=== PATIENT | male | born 1955 | race Caucasian/White ===

== ENCOUNTER → 2016-06-12 | Outpatient (CLI) | payer OTHER ==
--- NOTE | 2016-06-12 09:56 | US ---
Ultrasound of the Abdomen Complete History: Rib trauma Abdominal pain. Evaluate for liver contusion Findings: Gallbladder: Mobile stones versus sludge is noted in the gallbladder neck. Common bile duct is 4.3 mm in diameter which is normal. Gallbladder wall is 1.7 mm Liver: Homogeneous increased echogenicity and measures 19.2 cm in length. No definite focal lesions. Renal: Right kidney measures 4.8 x 5.2 x 9.7 cm with 1.5 cm cortex Pancreas: Homogeneous without peripancreatic fluid. Aorta: Visualized upper abdominal aorta demonstrates no aneurysm. It tapers normally from 22 to 20 mm IVC: Grossly patent. Impression: 1. Hepatomegaly with increased parenchymal echogenicity suggests diffuse fatty infiltration of the l iver. 2. Cholelithiasis
== END ==
LOC: CIMAGING 07:46
PROVIDERS: ATTEND Family Medicine
DX: R16.0 Hepatomegaly, not elsewhere classified (principal); K80.20 Calculus of gallbladder without cholecystitis without obstruction
CPT/HCPCS: 76700-PO

== ENCOUNTER 2018-02-21 06:06 | Inpatient (IN) | payer OTHER ==
[~2018-02-21 06:06] MED LIST: ROPIVACAINE 0.2% 80 MG, EPINEPHrine 0.2 MG, KETOROLAC TROMETHAMINE 30 MG in SYRINGE 0 ML IU ONE; TRANEXAMIC ACID 3,000 MG in NS (SYRINGE) 50 ML IRR ONE
--- NOTE | 2018-02-21 06:12 | PDHPUP ---
History & Physical Update H&P update statement: This history and physical update is based on an assessment of the patient which was completed after admission or registration (within 24 hours), but prior to the surgery/procedure. H&P update: H&P reviewed & patient examined, no change in patient's condition since H&P completed
[2018-02-21] MEDS ORDERED: ceFAZolin 2 GM/DEXTROSE 100 ML IV ONE (06:32)
[2018-02-21] MEDS ORDERED: FAMOTIDINE 20 MG TAB PO ONE (06:32)
[2018-02-21] MEDS ORDERED: ACETAMINOPHEN 325 MG TAB PO ONE (06:32)
[2018-02-21] MEDS ORDERED: DEXAMETHASONE 4 MG/ML VIAL IVP ONE (06:32)
[2018-02-21] MEDS ORDERED: LR 1,000 ML IV ONE (06:33)
[2018-02-21] MEDS ORDERED: TRANEXAMIC ACID 3,000 MG/50 ML BAG IRR ONE (06:39)
[2018-02-21] MEDS ORDERED: MIDAZOLAM 2 MG/2 ML VIAL IVP ONE (07:36)
--- NOTE | 2018-02-21 07:36 | PDANEPAE ---
ANE Past Medical History - Cardiovascular History Hx Hypertension: Yes Hx Arrhythmias: No Hx Chest Pain: No Hx Coronary Artery / Peripheral Vascular Disease: No Hx CHF / Valvular Disease: No Hx Palpitations: No - Pulmonary History Hx COPD: No Hx Asthma/Reactive Airway Disease: No Hx Recent Upper Respiratory Infection: No Hx Oxygen in Use at Home: No Hx Sleep Apnea: Yes Sleep Apnea Screening Result - Last Documented: Positive Pulmonary History Comment: MILD TIFFANY USES MOUTH GUARD. PREV FX RIBS 2016 - Neurologic History Hx Cerebrovascular Accident: No Hx Seizures: No Hx Dementia: No - Endocrine History Hx Diabetes: No Endocrine History Comment: BENIGN THYROID NODULES - Renal History Hx Renal Disorders: No - Liver History Hx Hepatic Disorders: No - Neurological & Psychiatric Hx Hx Neurological and Psychiatric Disorders: Yes Neurological / Psychiatric History Comment: ANXIETY - Cancer History Hx Cancer: No - Congenital Disorder History Hx Congenital Disorders: No - GI History Hx Gastrointestinal Disorders: Yes Gastrointestinal History Comment: INTERMITTENT REFLUX MIGHT USE TUMS. HX OF COLON POLYPS - Other Health History Other Health History: OSTEOARTHRITIS - Chronic Pain History Chronic Pain: Yes (LT HIP) - Surgical History Prior Surgeries: TONSILLECTOMY ANE Review of Systems Review of Systems: - Exercise capacity METS (RN): 4 METS ANE Patient History - Allergies Allergies/Adverse Reactions: No Known Allergies Allergy (Verified 01/23/18 10:45) - Home Medications Home Medications: Aspirin [Aspirin 81mg (*)] 81 mg PO DAILY 01/23/18 [Last Taken Unknown] Atorvastatin Calcium [Lipitor 20 mg (*)] 20 mg PO DAILY 01/23/18 [Last Taken Unknown] Cholecalciferol Vit D3 [Vitamin D3 (*)] 1,000 units PO DAILY 01/23/18 [Last Taken Unknown] Citalopram Hydrobromide [Celexa] 40 mg PO DAILY 01/23/18 [Last Taken Unknown] Metoprolol Succinate Xr [Toprol Xl 50 mg (*)] 50 mg PO DAILY 01/23/18 [Last Taken Unknown] Testosterone IM [Testosterone 100mg/ml IM inj (*)] 100 mg IM Q14D 01/23/18 [ Last Taken Unknown] Timolol 0.5% [TIMOPTIC 0.5% (*)] 1 drops EACHEYE DAILY 01/23/18 [Last Taken Unknown] - NPO status NPO Since - Liquids (Date): 02/21/18 NPO Since - Liquids (Time): 22:00 NPO Since - Solids (Date): 02/20/18 NPO Since - Solids (Time): 22:00 - Smoking Hx Smoking Status: Never smoked - Family Anes Hx Family Hx Anesthesia Complications: NEG ANE Labs/Vital Signs - Vital Signs Blood Pressure: 128/92 Heart Rate: 65 Respiratory Rate: 16 O2 Sat (%): 98 Height: 193.04 cm Weight: 105.687 kg ANE Physical Exam - Airway Neck exam: FROM Mallampati Score: Class 1 Mouth exam: normal dental/mouth exam - Pulmonary Pulmonary: no respiratory distress - Cardiovascular Cardiovascular: regular rate and rhythym - ASA Status ASA Status: II ANE Anesthesia Plan Anesthesia Plan: spinal
[2018-02-21] MEDS ORDERED: fentaNYL 100 MCG/2 ML INJ ONE ×2 (07:49→09:08)
[2018-02-21] MEDS ORDERED: PROPOFOL/EMULSION 500 MG/50 ML BOTTLE IV ONE (07:49)
[2018-02-21] MEDS ORDERED: BUPIVACAINE/DEXTROSE 7.5MG/ML 2 ML SPINAL AMP SP ONE ×2 (07:49→09:32)
[2018-02-21] MEDS ORDERED: MIDAZOLAM 2 MG/2 ML VIAL ONE (07:51)
[2018-02-21] MEDS ORDERED: PROPOFOL 200 MG/20 ML VIAL ONE ×2 (08:15→09:06)
[2018-02-21] MEDS ORDERED: ONDANSETRON 4 MG/2 ML VIAL ONE (08:52)
[2018-02-21] MEDS ORDERED: DEXAMETHASONE 4 MG/ML VIAL ONE (08:53)
[2018-02-21] MEDS ORDERED: GLYCOPYRROLATE 0.2 MG/1 ML VIAL ONE (08:53)
[2018-02-21] MEDS ORDERED: SUCCINYLCHOLINE CHLORIDE 200 MG/10 ML SYR IVP ONE (08:53)
[2018-02-21] MEDS ORDERED: ePHEDrine SULFATE 25 MG/5 ML SYR ONE (08:54)
[2018-02-21] MEDS ORDERED: diphenhydrAMINE 25 MG CAP PO PRN (09:41)
[2018-02-21] MEDS ORDERED: CYCLOBENZAPRINE 10 MG TAB PO PRN (09:41)
[2018-02-21] MEDS ORDERED: DIPHENOXYLATE/ATROPINE LOMOTIL 1 TAB PO PRN (09:41)
[2018-02-21] MEDS ORDERED: MAGNESIUM HYDROXIDE 30 ML UDCUP PO PRN (09:41)
[2018-02-21] MEDS ORDERED: POLYETHYLENE GLYCOL 3350 17 GM PKT PO PRN (09:41)
[2018-02-21] MEDS ORDERED: ONDANSETRON DISINTEGRATING 4 MG TAB PO PRN (09:41)
[2018-02-21] MEDS ORDERED: LACTULOSE 20 GM/30 ML UDCUP PO PRN (09:41)
[2018-02-21] MEDS ORDERED: BISACODYL 10 MG SUPP PR PRN (09:41)
[2018-02-21] MEDS ORDERED: TEMAZEPAM 15 MG CAP PO PRN (09:41)
[2018-02-21] MEDS ORDERED: ONDANSETRON 4 MG/2 ML VIAL IVP PRN ×2 (09:41→09:53)
[2018-02-21] MEDS ORDERED: METOCLOPRAMIDE 10 MG/2 ML VIAL IVP PRN (09:41)
[2018-02-21] MEDS ORDERED: PROMETHAZINE HCL 25 MG SUPPR PR PRN (09:41)
[2018-02-21] MEDS ORDERED: oxyCODONE IR 5 MG TAB PO PRN (09:41)
[2018-02-21] MEDS ORDERED: PROMETHAZINE HCL 25 MG/ML INJ IVP PRN (09:41)
--- NOTE | 2018-02-21 09:41 | POSTOPPROG ---
Post Op Note Date of Operation: 02/21/18 Surgeon: Augustine Bliss Audio Video Technician: patti bliss PA-C Anesthesiologist: dr phillips Anesthesia: Spinal Pre-op Diagnosis: left hip OA Post-op Diagnosis: same Indication: left hip pain Procedure: L JOAN ant approach Findings: severe hip OA Inf/Abcess present in the surg proc area at time of surgery?: No EBL: 100-500
[2018-02-21] MEDS ORDERED: fentaNYL 100 MCG/2 ML INJ IVP PRN (09:53)
[2018-02-21] MEDS ORDERED: NALOXONE HCL 0.4 MG/ML INJ IVP PRN (09:53)
[2018-02-21] MEDS ORDERED: LR 500 ML IV PRN (09:53)
[2018-02-21] MEDS ORDERED: LR 1,000 ML IV SCH (10:00)
--- NOTE | 2018-02-21 10:03 | POSTANESTH ---
Post Anesthetic Evaluation Cardiovascular Status: Normal, Stable Respiratory Status: Normal, Stable Level of Consciousness/Mental Status: Mildly Sleepy, Arousable Pain Control: Adequate, Prn Tx Ordered Nausea/Vomiting Control: Adequate, Prn Tx Ordered Complications Possibly Related to Anesthesia: None Noted
--- NOTE | 2018-02-21 10:28 | PDMN ---
Medical Necessity Medical necessity: Pt meets inpt criteria per MD order and [facility] [place] S-560, Hip Arthroplasty, CPT 09482, Medicare inpt only list code/surgery. Est LOS>2MN for L JOAN ant approach and post-op care.
[2018-02-21] MEDS: ACETAMINOPHEN 325 MG TAB PO SCH ×3 (12:31→23:31)
[2018-02-21] MEDS: ceFAZolin 2 GM/DEXTROSE 100 ML IV SCH ×2 (14:44→22:03)
--- NOTE | 2018-02-21 15:32 | ASMTCMCOM ---
CM Note CM Note Notes: Please disregard previous note. Incorrect pt. Date Signed: 02/21/2018 03:31 PM Electronically Signed By:Ana Mendoza
[2018-02-21] MEDS: SENNOSIDES/DOCUSATE SODIUM TAB PO SCH (20:39)
[2018-02-21] MEDS: FAMOTIDINE 20 MG TAB PO SCH (20:39)
[2018-02-21] MEDS: ASPIRIN 81 MG CHEWABLE TAB PO SCH (20:39)
[2018-02-22] MEDS: ACETAMINOPHEN 325 MG TAB PO SCH ×2 (05:54→12:06)
[2018-02-22] MEDS ORDERED: ATORVASTATIN CALCIUM 20 MG TAB PO SCH (09:00)
[2018-02-22] MEDS ORDERED: METOPROLOL SUCCINATE XR 50 MG TAB PO SCH (09:00)
[2018-02-22] MEDS ORDERED: TIMOLOL 0.5% 15 ML OPHT.BTL EACHEYE SCH (09:00)
[2018-02-22] MEDS ORDERED: CITALOPRAM 20 MG TAB PO SCH (09:00)
[2018-02-22] MEDS: ASPIRIN 81 MG CHEWABLE TAB PO SCH (09:07)
[2018-02-22] MEDS: FAMOTIDINE 20 MG TAB PO SCH (09:08)
[2018-02-22] MEDS: SENNOSIDES/DOCUSATE SODIUM TAB PO SCH (09:09)
--- NOTE | 2018-02-22 10:52 | SOAPPROG ---
[facility] Progress Note Assessment/Plan: Assessment: patient is doing well s/p L JOAN pain is well controlled on oral pain meds Anemia: level expected initially postop. asymptomatic VTE ppx: recommend ASA 81 mg BID for 4 weeks D/c planning: d/c to home today once released from PT and patient is able to void postop urinary retention: patient has been straight cath'd 3 times since surgery. patient has until 3 pm today to urinate on his own. IF not, we recommend an in-dwelling urinary catheter. Do not continue to straight cath patient. If patient is able to void, he may discharge to home later today. Plan: 02/22/18 10:49 Subjective: patient is doing well, having trouble urinating after spinal, denies SOB, chest pain and N/V Objective: Vital Signs Temp Pulse Resp BP Pulse Ox 36.7 C 82 18 139/81 H 93 02/22/18 08:00 02/22/18 08:00 02/22/18 08:00 02/22/18 08:00 02/22/18 08:00 Laboratory Results 02/22/18 04:33 02/21/18 02/22/18 02/23/18 05:59 05:59 05:59 Intake Total 3735 1430 Output Total 1950 550 Balance 1785 880 LLE:incision dressing is clean and dry, NV, +pf/df ICD10 Worksheet Patient Problems: Problems Problem Status Onset Primary localized osteoarthritis of left hip Acute
[2018-02-22 11:49] VITALS: BP 137/88
--- NOTE | 2018-02-22 12:22 | ASMTLACE ---
LACE Length of stay for Answers: 1 day current admission Acuity / Level of Answers: Yes Care: Did the patient have an inpatient admission? Comorbidities - select Answers: Any tumor (including all that apply lymphoma or leukemia) Congestive heart failure Coronary Artery Disease Diabetes (uncontrolled or controlled) Other Notes: renal disease # of Emergency department Answers: 1-2 visits in the last 6 months Score: 13 Date Signed: 02/22/2018 12:22 PM Electronically Signed By:Courtney Baires RN
--- NOTE | 2018-02-23 04:06 | GOP ---
DATE OF OPERATION: 02/21/2018 SURGEON: Laurie Espinosa MD PAPER NOVELTY MAKER: ZAID Pratt ANESTHESIA: Spinal. PREOPERATIVE DIAGNOSIS: Left hip osteoarthritis. POSTOPERATIVE DIAGNOSIS: Left hip osteoarthritis. PROCEDURE PERFORMED: Left total hip arthroplasty with x-ray. FINDINGS: ESTIMATED BLOOD LOSS: 200 cc. INDICATIONS: The patient has progressively worsening arthritis of the hip which has failed medical m anagement. The patient understands the treatment options including continued non-operative care and has selected surgical intervention. The patient has decided to undergo total hip arthroplasty via th e direct anterior approach, understanding the risks of the procedure including, but not limited to, n eurovascular injury, infection, persistent pain, component wear and loosening, deep venous thrombosis , pulmonary embolism, limb length inequality, hip instability (including dislocation), and intra-oper ative fractures. DESCRIPTION OF PROCEDURE: After proper identification of the patient including verification and alfredo ing the surgical site, the patient was brought to the operating room and placed in the supine positio n. All bony prominences were well padded. Anesthesia was induced without complication and intraveno us prophylactic antibiotics were administered prior to skin incision. The operative leg was placed in the Trumpf Arch table extension and the well leg in a Yellofin leg ho lder. The patient was prepped and draped in the usual sterile fashion. The C-arm was draped for int ra-operative fluoroscopy to check acetabular position, femoral component position including leg lengt h and femoral offset. Attention was then drawn to surgical exposure of the hip. An incision was made with a #10 Bard Alpine r blade starting 3 cm lateral and 3 cm distal to the anterior superior iliac spine measuring 8-10 cm and coursing distally toward the greater trochanter. The skin and subcutaneous tissues were divided sharply down to the fascia dean. The fascia dean was incised in line with the skin incision exposing the underlying tensor fascia dean muscle. The muscle was bluntly elevated from the fascia and the f irst extracapsular Cobra retractor was placed laterally at the junction of the superior femoral neck and greater trochanter. The lateral femoral circumflex vessels were identified, cauterized, and divi ded with the Aquamantys bipolar cautery. The deep investing fascia of the TFL was divided to allow p yanci mobilization of the muscle preventing damage during the retraction. The reflected head of the rectus femoris muscle was elevated off the anterior hip capsule and a medial Cobra retractor was plac ed just proximal to the lesser trochanter. The anterior capsulotomy was made sharply from the superolateral acetabulum to the saddle junction of the superior femoral neck and greater trochanter, then coursing inferomedial towards the lesser troc hanter. The retractors were then placed in the intracapsular position for femoral neck osteotomy. C orresponding to pre-operative templating, the osteotomy was made with the oscillating saw carefully p rotecting the greater trochanter and soft tissues. The femoral head was removed from the acetabulum with a corkscrew and confirmed to be severely arthritic with exposed bone, deformity and osteophytes. Similar findings were confirmed in the acetabulum. The Arch table extension was then placed in 40 degrees external rotation. Attention was then drawn to the acetabular preparation. After placement of the anterior and posterio r Cobra retractors outside the labrum and intracapsular, the circumferential labrum was removed sharp ly. The foveal contents were then removed and hemostasis obtained with cautery. The first reamer selected was sized using the removed femoral head. Reaming began with medialization and then commenced in 2 mm increments at 45 degrees of abduction and 15 degrees of anteversion using fluoroscopic navigation. Reaming ceased 1 mm less than the definitive acetabular component and dru esponded to the pre-operative templating. The final acetabular component was inserted using fluorosc opy to achieve proper orientation yielding excellent purchase and stability in the acetabulum. The f inal acetabular liner was then placed and its seating confirmed. Attention was then turned to the femur. The Arch table extension was placed in extension and adducti on, delivering the osteotomized femoral neck into the wound. A 2-pronged femoral elevator was placed at the calcar and another at the tip of the greater trochanter. The posterolateral capsule was rele ased with cautery allowing mobilization of the femur lateral and anterior for preparation. The exter nal rotators were visualized and preserved. A curette and rongeur were used to open the starting poi nt for broaching. Serial broaching started with the #0 broach and ended with the broach that exhibit ed excellent fit in the proximal femur. A change in pitch during mallet strikes was accompanied by t he inability to advance the broach any further. The trial reduction was performed and fluoroscopic n avigation was utilized to check limb length. Adjustments were made to equalize limb length according ly. After the final trials were accepted they were removed and the wound was copiously lavaged. The femo ral component was seated to the same depth as the final broach and the femoral head was impacted onto the clean trunnion. The hip was then reduced for the final time and once more fluoroscopy was used to check that limb length equality was achieved. The wound was irrigated and closed in layers, the fascia dean with 2-0 Quill, the subcutaneous tissue with 2-0 Quill, and the skin with Dermabond. Sterile dressings were applied. Final sharps and spon ge counts were accurate. The patient was then transferred to a hospital bed and brought to the [facility] room in stable condition. IMPLANTS: Accolade II size 10, a 127 acetabular component, 64 mm Tritanium, Trident X3 36 mm liner, head is a Biolox Delta 36 mm, +5. /[id number]/[id number]
== END 2018-02-22 13:49 | disposition home or self-care (01) | DRG 470 ==
LOC: F3N 06:06
PROVIDERS: ADMIT Orthopaedic Surgery; ATTEND Orthopaedic Surgery
PROC: 0SRB04Z Replacement of Left Hip Joint with Ceramic on Polyethylene Synthetic Substitute, Open Approach (ICD-10-PCS; principal; 2018-02-21 08:00)
DX: M16.12 Unilateral primary osteoarthritis, left hip (principal); I10 Essential (primary) hypertension; G47.33 Obstructive sleep apnea (adult) (pediatric); R33.9 Retention of urine, unspecified
CPT/HCPCS: 97116-GP; 97161-GP; 97530-GP; J0171; J0330; J0690; J1100; J1885; J2250; J2405; J2704; J2795; J3010